=== PATIENT | female | born 1935 | race Caucasian/White ===

== ENCOUNTER 2017-02-23 22:33 | Emergency (ER) | payer OTHER ==
[~2017-02-23] VITALS: Ht 162.6 cm; Wt 59.0 kg
[~2017-02-23 22:33] MED LIST: CARV25TA55 PO; CYAN100067 PO; DIGO125T79 PO; FERR-57 PO; FOLI-43 PO; FURO-149 PO; HYDR-1189 PO; METO-290 PO; OMEP20CA10 PO; POTA20TA83 PO; RANO10003 PO; SIMV40TA5 PO; SYN75 PO; VITD2000 PO; WARF5TAB2 PO
[2017-02-23 22:46] VITALS: BP_SYST 137
[2017-02-24 02:42] VITALS: BP_SYST 129
== END 2017-02-24 02:42 | disposition home or self-care (01) ==
LOC: SED 22:33
DX: M54.5 Low back pain (principal); K21.9 Gastro-esophageal reflux disease without esophagitis; E07.9 Disorder of thyroid, unspecified; I48.91 Unspecified atrial fibrillation; Z88.1 Allergy status to other antibiotic agents; Z79.899 Other long term (current) drug therapy
CPT/HCPCS: 72131; 99284

== ENCOUNTER 2020-05-13 15:25 | Outpatient (CLI) | payer OTHER ==
[~2020-05-13 15:25] MED LIST changes: +CYAN100010 PO; -CYAN100067 PO; +DIGO125T PO; -DIGO125T79 PO; -OMEP20CA10 PO; +OMEP20CA15 PO; +SIMV-46 PO; -SIMV40TA5 PO
[2020-05-13 16:38] LABS: BASOPHILS % (AUTO) 0.5 % (0.0-2.0); EOSINOPHILS # (AUTO) 0.1 K/uL (0.0-0.4); EOSINOPHILS % (AUTO) 1.9 % (0.0-4.0); HEMATOCRIT 30.6 % (36-48); HEMOGLOBIN 10.5 g/dL (12.0-16.0); LYMPHOCYTES # (AUTO) 0.8 K/uL (1.0-5.5); LYMPHOCYTES % (AUTO) 18.8 % (20.5-51.5); MEAN CORPUSCULAR HEMOGLOBIN 38 pg (27-31); MEAN CORPUSCULAR HGB CONC 34 % (32-36); MEAN CORPUSCULAR VOLUME 112 fL (79.0-98.0); MONOCYTES # (AUTO) 0.4 K/uL (0.0-1.0); MONOCYTES % (AUTO) 8.2 % (1.7-9.3); NEUTROPHILS # (AUTO) 3.2 K/uL (1.8-7.7); NEUTROPHILS % (AUTO) 70.6 % (40.0-70.0); PLATELET COUNT (AUTO) 171 K/uL (130-430); RED BLOOD CELL COUNT(AUTO) 2.74 MIL/uL (4.2-6.2); WHITE BLOOD COUNT (AUTO) 4.5 K/uL (4.8-10.8)
[2020-05-13 16:43] LABS: BILIRUBIN,URINE NEGATIVE (NEGATIVE); BLOOD, URINE NEGATIVE (NEGATIVE); CLARITY/URINE CLEAR (CLEAR); COLOR,URINE ORANGE (YELLOW); GLUCOSE,URINE NEGATIVE (NEGATIVE); KETONES,URINE NEGATIVE (NEGATIVE); LEUKOCYTE ESTERASE ,URINE TRACE (NEGATIVE); NITRITE, URINE NEGATIVE (NEGATIVE); PROTEIN URINE NEGATIVE (NEGATIVE); UROBILINOGEN,URINE 0.2 (0.2-1.0)
[2020-05-13 16:54] LABS: ALANINE AMINOTRANSFERASE 24 U/L (12-78); ALBUMIN 3.1 g/dL (3.4-4.8); ANION GAP 6 (5-15); ASPARTATE AMINOTRANSFERASE 21 U/L (10-37); CALCIUM 8.5 mg/dL (8.4-11.0); CHLORIDE 106 mmol/L (98-107); CREATININE 1.44 mg/dL (0.55-1.30); GLUCOSE 104 mg/dL (70-99); POTASSIUM 4.1 mmol/L (3.5-5.1); SODIUM SERUM 139 mmol/L (136-145); TOTAL BILIRUBIN 0.6 mg/dL (0.0-1.0); UREA NITROGEN, BLOOD 26 mg/dL (8-21)
[2020-05-13 16:57] LABS: BACTERIA,URINE RARE /HPF (None Seen); MUCUS,URINE None Seen /LPF (None Seen); RBC,URINE 0-3 /HPF (0-3); WBC,URINE 0-3 /HPF (0-3)
[2020-05-13 17:01] LABS: CHOLESTEROL 144 mg/dL (<200); HDL CHOLESTEROL 70 mg/dL (>55); LDL CHOLESTEROL 57 mg/dL (<100); TRIGLYCERIDES 82 mg/dL (30-150)
== END 2020-05-13 20:39 | disposition home or self-care (01) ==
LOC: SLB 15:25
PROVIDERS: ATTEND Family Medicine Geriatric Medicine
DX: I10 Essential (primary) hypertension (principal); Z79.899 Other long term (current) drug therapy
CPT/HCPCS: 36415; 80053; 80061; 81000-TC; 82550-TC; 85025; 87086

== ENCOUNTER 2021-10-31 12:25 | Emergency (ER) | payer OTHER ==
[~2021-10-31] VITALS: Ht 162.6 cm; Wt 55.3 kg
[~2021-10-31 12:25] MED LIST changes: -HYDR-1189 PO; +HYDR-3919 PO; +POTA-197 PO; -POTA20TA83 PO
[2021-10-31 13:06] VITALS: BP_SYST 112
--- NOTE | 2021-10-31 13:06 | NUR ---
PT TRAIGED AND PLACED IN ED WAITING ROOM FOR AVAILABLE BED IN MAIN ED. ER MD AWARE OF MSE NEEDS
--- NOTE | 2021-10-31 13:13 | NUR ---
PT BIB FAMILY FROM HOME STATES PT HAD SYNCOPAL EVENT IN BATHROOM WITH FAMILY PRESENT YESTERDAY AT HOME, WHILE GETTING OUT OF THE SHOWER SHE BEGAN TO FALL, WAS LOWERED TO TOILET, THEN HAD RIGHT SIDED FACIAL DROOPING AND DROOLING, LOST CONSCIOUSNESS, WITH CONVULSIONS WITNESSED BY FAMILY. PT CALLED 911, PT TAKED TO HOSPITAL, HAD A NEGATIVE HEAD CT AND WAS DC'D. TODAY PT WENT TO FOR FOLLOW UPAND REFERRED HERE FOR MRI PER FAMILY. PT IS CURRENTLY AMBULATORY WITH STEADY GAIT, NO FACIAL DROOP, OR RIGHT SIDED WEAKNESS, [id number], VSS
--- NOTE | 2021-10-31 13:44 | NUR ---
COVID swabbed, sent to the lab.
[2021-10-31 14:06] LABS: BASOPHILS % (AUTO) 0.5 % (0.0-2.0); EOSINOPHILS # (AUTO) 0.1 K/uL (0.0-0.4); EOSINOPHILS % (AUTO) 1.8 % (0.0-4.0); HEMATOCRIT 29.3 % (36-48); HEMOGLOBIN 9.8 g/dL (12.0-16.0); LYMPHOCYTES # (AUTO) 1.1 K/uL (1.0-5.5); LYMPHOCYTES % (AUTO) 24.3 % (20.5-51.5); MEAN CORPUSCULAR HEMOGLOBIN 35 pg (27-31); MEAN CORPUSCULAR HGB CONC 34 % (32-36); MEAN CORPUSCULAR VOLUME 105 fL (79.0-98.0); MONOCYTES # (AUTO) 0.6 K/uL (0.0-1.0); MONOCYTES % (AUTO) 11.8 % (1.7-9.3); NEUTROPHILS # (AUTO) 2.9 K/uL (1.8-7.7); NEUTROPHILS % (AUTO) 61.6 % (40.0-70.0); PLATELET COUNT (AUTO) 161 K/uL (130-430); RED BLOOD CELL COUNT(AUTO) 2.79 MIL/uL (4.2-6.2); RED CELL DISTRIBUTION WIDTH 14.9 % (9.0-15.0); WHITE BLOOD COUNT (AUTO) 4.7 K/uL (4.8-10.8)
[2021-10-31 14:13] LABS: ANION GAP 1 (5-15); CALCIUM 8.9 mg/dL (8.4-11.0); CHLORIDE 107 mmol/L (98-107); CREATININE 1.34 mg/dL (0.55-1.30); GLUCOSE 88 mg/dL (70-99); POTASSIUM 3.9 mmol/L (3.5-5.1); SODIUM SERUM 141 mmol/L (136-145); UREA NITROGEN, BLOOD 34 mg/dL (8-21)
[2021-10-31 14:22] LABS: ALANINE AMINOTRANSFERASE 18 U/L (12-78); ALBUMIN 2.8 g/dL (3.4-4.8); ASPARTATE AMINOTRANSFERASE 21 U/L (10-37); TOTAL BILIRUBIN 0.3 mg/dL (0.0-1.0)
--- NOTE | 2021-10-31 14:55 | NUR ---
ER DR. MCCAIN EXAMINING PT IN TRIAGE
--- NOTE | 2021-10-31 15:29 | NUR ---
Urine collected, sent to lab. Dark yellow & clear.
[2021-10-31 15:38] LABS: BILIRUBIN,URINE NEGATIVE (NEGATIVE); BLOOD, URINE 1+ (NEGATIVE); COLOR,URINE YELLOW (YELLOW); GLUCOSE,URINE NEGATIVE (NEGATIVE); KETONES,URINE NEGATIVE (NEGATIVE); LEUKOCYTE ESTERASE ,URINE TRACE (NEGATIVE); NITRITE, URINE NEGATIVE (NEGATIVE); PH,URINE 6.5 (5.0-8.0); PROTEIN URINE NEGATIVE (NEGATIVE); UROBILINOGEN,URINE 0.2 (0.2-1.0)
[2021-10-31 15:39] LABS: CLARITY/URINE SLIGHTLY HAZY (CLEAR)
[2021-10-31 15:44] LABS: BACTERIA,URINE FEW /HPF (None Seen)
[2021-10-31] MEDS ORDERED: CEPH250C PO (15:54)
[2021-10-31 16:07] VITALS: BP_SYST 112
--- NOTE | 2021-10-31 16:07 | NUR ---
Patient given written and verbal discharge instructions and verbalizes understanding. ER MD discussed with patient the results and treatment provided. Patient in stable condition. ID arm band removed. Rx of KEFLEX given. Patient educated on pain management and to follow up with PMD. Pain Scale 0/10. Opportunity for questions provided and answered. Medication side effect fact sheet provided. PT TO FOLLOW UP WITH NEUROLOGIST IN AM
== END 2021-10-31 16:07 | disposition home or self-care (01) ==
LOC: SED 12:25
DX: R56.9 Unspecified convulsions (principal); N39.0 Urinary tract infection, site not specified; R55 Syncope and collapse; R29.810 Facial weakness; N18.9 Chronic kidney disease, unspecified; K21.9 Gastro-esophageal reflux disease without esophagitis; Z88.1 Allergy status to other antibiotic agents; Z79.899 Other long term (current) drug therapy; Z20.822 Contact with and (suspected) exposure to COVID-19
CPT/HCPCS: 36415; 80053; 81000; 83605; 83880; 84484; 85025; 87086; 93005; 99284

== ENCOUNTER 2022-10-21 21:29 | Inpatient (IN) | payer OTHER ==
[~2022-10-21] VITALS: Ht 170.2 cm; Wt 58.1 kg
[~2022-10-21 21:29] MED LIST changes: +CEPH250C PO
[2022-10-21 21:36] VITALS: BP_SYST 103; PULSE 78; RESP 20; TEMP 98.6; O2SAT 95
[2022-10-21 22:39] LABS: BASOPHILS % (AUTO) 0.4 % (0.0-2.0); EOSINOPHILS # (AUTO) 0.1 K/uL (0.0-0.4); EOSINOPHILS % (AUTO) 1.3 % (0.0-4.0); HEMATOCRIT 30.9 % (36-48); HEMOGLOBIN 10.3 g/dL (12.0-16.0); LYMPHOCYTES % (AUTO) 17.6 % (20.5-51.5); MEAN CORPUSCULAR HEMOGLOBIN 35 pg (27-31); MEAN CORPUSCULAR HGB CONC 33 % (32-36); MEAN CORPUSCULAR VOLUME 106 fL (79.0-98.0); MONOCYTES # (AUTO) 0.6 K/uL (0.0-1.0); MONOCYTES % (AUTO) 11.3 % (1.7-9.3); NEUTROPHILS % (AUTO) 69.4 % (40.0-70.0); PLATELET COUNT (AUTO) 176 K/uL (130-430); RED BLOOD CELL COUNT(AUTO) 2.92 MIL/uL (4.2-6.2); RED CELL DISTRIBUTION WIDTH 13.8 % (9.0-15.0); WHITE BLOOD COUNT (AUTO) 5.7 K/uL (4.8-10.8)
[2022-10-21 22:51] LABS: ANION GAP 4 (5-15); CALCIUM 9.3 mg/dL (8.4-11.0); CARBON DIOXIDE 31 mmol/L (23-29); CHLORIDE 102 mmol/L (98-107); CREATININE 1.65 mg/dL (0.55-1.30); GLUCOSE 104 mg/dL (74-106); POTASSIUM 3.9 mmol/L (3.5-5.1); SODIUM SERUM 137 mmol/L (136-145); UREA NITROGEN, BLOOD 22 mg/dL (8-21)
[2022-10-21 23:00] LABS: ALANINE AMINOTRANSFERASE 25 U/L (12-78); ALBUMIN 2.6 g/dL (3.4-4.8); ASPARTATE AMINOTRANSFERASE 26 U/L (10-37); TOTAL BILIRUBIN 0.7 mg/dL (0.0-1.0); TOTAL PROTEIN, SERUM 7.2 g/dL (6.4-8.3)
[2022-10-22 00:21] LABS: BILIRUBIN,URINE NEGATIVE (NEGATIVE); BLOOD, URINE 1+ (NEGATIVE); CLARITY/URINE CLEAR (CLEAR); COLOR,URINE YELLOW (YELLOW); GLUCOSE,URINE NEGATIVE (NEGATIVE); KETONES,URINE TRACE (NEGATIVE); LEUKOCYTE ESTERASE ,URINE NEGATIVE (NEGATIVE); NITRITE, URINE NEGATIVE (NEGATIVE); PROTEIN URINE NEGATIVE (NEGATIVE); UROBILINOGEN,URINE 0.2 (0.2-1.0)
[2022-10-22 00:29] LABS: BACTERIA,URINE RARE /HPF (None Seen)
[2022-10-22 00:31] LABS: CALCIUM OXALATE CRYSTALS,UR 0-10 /HPF (None Seen)
[2022-10-22] MEDS ORDERED: NACL 0.9% 1,000 ML IV ONE ×2 (01:45→02:45)
[2022-10-22] MEDS ORDERED: MYCOLOG30 TP (02:30)
[2022-10-22] MEDS ORDERED: FERR236T3 PO (02:30)
[2022-10-22] MEDS ORDERED: FLUT1BLS14 INH (02:30)
[2022-10-22] MEDS ORDERED: LIP40 PO (02:30)
[2022-10-22] MEDS ORDERED: L.RH1CAP PO (02:30)
[2022-10-22] MEDS ORDERED: UBID50TA3 PO (02:30)
[2022-10-22] MEDS ORDERED: CYAN100010 PO (02:30)
[2022-10-22] MEDS ORDERED: FLO44 INH (02:30)
[2022-10-22] MEDS ORDERED: AZEL6DRO5 EACH EYE (02:30)
[2022-10-22] MEDS ORDERED: CITA10TA17 PO (02:30)
[2022-10-22] MEDS ORDERED: METO25TA3 PO (02:30)
[2022-10-22] MEDS ORDERED: CHOL200019 PO (02:30)
[2022-10-22] MEDS ORDERED: MECL-225 PO (02:30)
[2022-10-22] MEDS ORDERED: NITSL SL (02:30)
[2022-10-22] MEDS ORDERED: POTA-195 PO (02:30)
[2022-10-22] MEDS ORDERED: WARF1TAB84 PO (02:30)
[2022-10-22] MEDS ORDERED: DIPHENHYDRAMINE INJ 50 MG/ML VIAL IVP ONE (02:45)
[2022-10-22] MEDS: cefTRIAXone 1 GM IVPB PREMIX 50 ML IV SCH (03:00)
[2022-10-22] MEDS ORDERED: LORazepam 2 MG/ML VIAL IVP ONE (03:15)
[2022-10-22 13:16] VITALS: BP_SYST 152; PULSE 75; RESP 18; TEMP 99.2; O2SAT 95
[2022-10-22 13:19] VITALS: BP_SYST 152; PULSE 70; RESP 16; TEMP 99.2
[2022-10-22] MEDS ORDERED: amLODIPine BESYLATE 5 MG TABLET PO ONE (14:45)
[2022-10-22] MEDS ORDERED: FUROSEMIDE 40 MG TABLET PO ONE (14:45)
[2022-10-22] MEDS ORDERED: hydrALAZINE HCL 20 MG/ML VIAL IVP PRN (15:00)
[2022-10-22] MEDS ORDERED: FUROSEMIDE 20 MG/2 ML VIAL IVP ONE (15:00)
[2022-10-22] MEDS: NACL 0.9% 1,000 ML IV SCH (15:31)
[2022-10-22 17:17] VITALS: BP_SYST 126; PULSE 69; RESP 16; TEMP 98.2; O2SAT 95
[2022-10-22] MEDS ORDERED: WARFARIN SODIUM 5 MG TABLET PO SCH (19:30)
[2022-10-22 20:10] VITALS: BP_SYST 137; PULSE 76; RESP 18; TEMP 98.9; O2SAT 95
[2022-10-22 20:18] VITALS: O2SAT 93
[2022-10-22] MEDS: RANOLAZINE 500 MG TAB.SR.12H PO SCH (21:00)
[2022-10-22] MEDS: FLUTICASONE 250 mCg/SALMETEROL 50 mCg DISKUS W.DEV INH SCH (21:00)
[2022-10-22] MEDS: ATORVASTATIN 20 MG TABLET PO SCH (21:42)
[2022-10-22] MEDS: METOPROLOL SUCCINATE 25 MG TAB.SR.24H (TOPROL XL) PO SCH (21:44)
[2022-10-22] MEDS: CARVEDILOL 25 MG TABLET (COREG) PO SCH (21:44)
[2022-10-22] MEDS: HEPARIN SODIUM,PORCINE 5,000 UNITS/ML VIAL SUBCUT SCH (21:46)
[2022-10-23] VITALS (9 sets, daily range): BP systolic 128–149; PULSE 66–92; RESP 16–18; TEMP 97.6–98.8; O2SAT 90–98
[2022-10-23] MEDS: NACL 0.9% 1,000 ML IV SCH ×4 (00:40→18:10)
[2022-10-23] MEDS ORDERED: cefTRIAXone 1 GM IVPB PREMIX 50 ML IV ONE (01:32)
[2022-10-23] MEDS: cefTRIAXone 1 GM IVPB PREMIX 50 ML IV SCH (02:13)
[2022-10-23 06:49] LABS: BASOPHILS % (AUTO) 0.2 % (0.0-2.0); EOSINOPHILS % (AUTO) 0.4 % (0.0-4.0); HEMATOCRIT 26.1 % (36-48); HEMOGLOBIN 8.8 g/dL (12.0-16.0); LYMPHOCYTES # (AUTO) 0.8 K/uL (1.0-5.5); LYMPHOCYTES % (AUTO) 15.2 % (20.5-51.5); MEAN CORPUSCULAR HEMOGLOBIN 35 pg (27-31); MEAN CORPUSCULAR HGB CONC 34 % (32-36); MEAN CORPUSCULAR VOLUME 105 fL (79.0-98.0); MONOCYTES # (AUTO) 0.4 K/uL (0.0-1.0); NEUTROPHILS # (AUTO) 3.8 K/uL (1.8-7.7); NEUTROPHILS % (AUTO) 75.2 % (40.0-70.0); PLATELET COUNT (AUTO) 143 K/uL (130-430); RED CELL DISTRIBUTION WIDTH 13.7 % (9.0-15.0)
[2022-10-23] MEDS: LEVOTHYROXINE SODIUM 0.075 MG TABLET PO SCH (06:51)
[2022-10-23 07:24] LABS: ALANINE AMINOTRANSFERASE 19 U/L (12-78); ANION GAP 7 (5-15); ASPARTATE AMINOTRANSFERASE 21 U/L (10-37); CALCIUM 7.6 mg/dL (8.4-11.0); CARBON DIOXIDE 26 mmol/L (23-29); CHLORIDE 106 mmol/L (98-107); CREATININE 1.19 mg/dL (0.55-1.30); GLUCOSE 100 mg/dL (74-106); PHOSPHORUS 3.6 mg/dL (2.7-4.5); POTASSIUM 3.2 mmol/L (3.5-5.1); SODIUM SERUM 139 mmol/L (136-145); TOTAL BILIRUBIN 0.6 mg/dL (0.0-1.0); TOTAL PROTEIN, SERUM 6.1 g/dL (6.4-8.3); UREA NITROGEN, BLOOD 18 mg/dL (8-21)
[2022-10-23] MEDS: PANTOPRAZOLE SODIUM 40 MG TAB PO SCH (09:00)
[2022-10-23] MEDS: METOPROLOL SUCCINATE 25 MG TAB.SR.24H (TOPROL XL) PO SCH ×2 (09:00→21:25)
[2022-10-23] MEDS: DIGOXIN 0.125 MG TABLET PO SCH (09:00)
[2022-10-23] MEDS: amLODIPine BESYLATE 5 MG TABLET PO SCH (09:00)
[2022-10-23] MEDS ORDERED: OMEPRAZOLE Non-Formulary 20 MG CAPSULE.DR PO SCH (09:00)
[2022-10-23] MEDS: RANOLAZINE 500 MG TAB.SR.12H PO SCH ×2 (09:00→21:24)
[2022-10-23] MEDS: CARVEDILOL 25 MG TABLET (COREG) PO SCH ×2 (09:00→21:24)
[2022-10-23] MEDS: CHOLECALCIFEROL (VITAMIN D3) 2,000 UNIT TABLET PO SCH (09:00)
[2022-10-23] MEDS: FLUTICASONE 250 mCg/SALMETEROL 50 mCg DISKUS W.DEV INH SCH (09:00)
[2022-10-23] MEDS ORDERED: KCL 40 mEq in 100 mL (PREMIX) 100 ML IV ONE (09:30)
[2022-10-23] MEDS: FUROSEMIDE 40 MG TABLET PO SCH (10:06)
[2022-10-23] MEDS: POTASSIUM CHLORIDE 20 mEq in 100 mL (PREMIX) 100 ML x 2 doses IV SCH ×2 (10:15→18:11)
[2022-10-23] MEDS: HEPARIN SODIUM,PORCINE 5,000 UNITS/ML VIAL SUBCUT SCH (10:19)
[2022-10-23 11:25] LABS: PROTHROMBIN TIME 37.5 SECS (9.5-12.5)
[2022-10-23 11:26] LABS: INR 3.9 (0.8-1.2)
[2022-10-23] MEDS: ALBUTEROL SULFATE 0.083% 2.5 MG/3 ML VIAL.NEB INH SCH ×2 (15:08→19:37)
[2022-10-23] MEDS: BUDESONIDE 0.5 MG/2 ML AMPUL.NEB INH SCH (19:38)
[2022-10-23] MEDS: ATORVASTATIN 20 MG TABLET PO SCH (21:24)
[2022-10-24] VITALS (7 sets, daily range): BP systolic 103–136; PULSE 75–90; RESP 18; TEMP 97.8–98; O2SAT 94–96
[2022-10-24] MEDS: ALBUTEROL SULFATE 0.083% 2.5 MG/3 ML VIAL.NEB INH SCH ×4 (01:00→20:08)
[2022-10-24] MEDS: NACL 0.9% 1,000 ML IV SCH ×2 (04:13→09:13)
[2022-10-24 05:05] LABS: BASOPHILS % (AUTO) 0.5 % (0.0-2.0); EOSINOPHILS % (AUTO) 0.3 % (0.0-4.0); HEMATOCRIT 28.2 % (36-48); HEMOGLOBIN 9.4 g/dL (12.0-16.0); LYMPHOCYTES # (AUTO) 0.5 K/uL (1.0-5.5); LYMPHOCYTES % (AUTO) 11.7 % (20.5-51.5); MEAN CORPUSCULAR HEMOGLOBIN 35 pg (27-31); MEAN CORPUSCULAR HGB CONC 33 % (32-36); MEAN CORPUSCULAR VOLUME 105 fL (79.0-98.0); MONOCYTES # (AUTO) 0.2 K/uL (0.0-1.0); MONOCYTES % (AUTO) 6.2 % (1.7-9.3); NEUTROPHILS # (AUTO) 3.2 K/uL (1.8-7.7); NEUTROPHILS % (AUTO) 81.3 % (40.0-70.0); PLATELET COUNT (AUTO) 153 K/uL (130-430); RED BLOOD CELL COUNT(AUTO) 2.69 MIL/uL (4.2-6.2); RED CELL DISTRIBUTION WIDTH 14.2 % (9.0-15.0); WHITE BLOOD COUNT (AUTO) 3.9 K/uL (4.8-10.8)
[2022-10-24 05:37] LABS: ALANINE AMINOTRANSFERASE 26 U/L (12-78); ALBUMIN 2.1 g/dL (3.4-4.8); ANION GAP 10 (5-15); ASPARTATE AMINOTRANSFERASE 28 U/L (10-37); CALCIUM 7.5 mg/dL (8.4-11.0); CARBON DIOXIDE 22 mmol/L (23-29); CHLORIDE 106 mmol/L (98-107); CREATININE 1.16 mg/dL (0.55-1.30); GLUCOSE 108 mg/dL (74-106); PHOSPHORUS 2.4 mg/dL (2.7-4.5); POTASSIUM 4.1 mmol/L (3.5-5.1); SODIUM SERUM 138 mmol/L (136-145); TOTAL BILIRUBIN 0.9 mg/dL (0.0-1.0); TOTAL PROTEIN, SERUM 6.7 g/dL (6.4-8.3); UREA NITROGEN, BLOOD 23 mg/dL (8-21)
[2022-10-24 05:50] LABS: INR 4.2 (0.8-1.2); PROTHROMBIN TIME 40.6 SECS (9.5-12.5)
[2022-10-24] MEDS: LEVOTHYROXINE SODIUM 0.075 MG TABLET PO SCH (06:50)
[2022-10-24] MEDS: BUDESONIDE 0.5 MG/2 ML AMPUL.NEB INH SCH ×2 (07:38→20:08)
[2022-10-24] MEDS: METOPROLOL SUCCINATE 25 MG TAB.SR.24H (TOPROL XL) PO SCH ×2 (09:11→20:22)
[2022-10-24] MEDS: DIGOXIN 0.125 MG TABLET PO SCH (09:12)
[2022-10-24] MEDS: CARVEDILOL 25 MG TABLET (COREG) PO SCH ×2 (09:12→20:22)
[2022-10-24] MEDS: PANTOPRAZOLE SODIUM 40 MG TAB PO SCH (09:12)
[2022-10-24] MEDS: amLODIPine BESYLATE 5 MG TABLET PO SCH (09:12)
[2022-10-24] MEDS: CHOLECALCIFEROL (VITAMIN D3) 2,000 UNIT TABLET PO SCH (09:12)
[2022-10-24] MEDS: FUROSEMIDE 40 MG TABLET PO SCH (09:13)
[2022-10-24] MEDS: CEFTRIAXONE SOD 1 GM/ D5W 50 ML IV SCH ×2 (09:13)
[2022-10-24] MEDS: RANOLAZINE 500 MG TAB.SR.12H PO SCH ×2 (09:19→20:56)
[2022-10-24] MEDS ORDERED: WARFARIN SODIUM 2 MG TABLET PO SCH (18:00)
[2022-10-24] MEDS ORDERED: WARFARIN SODIUM 5 MG TABLET PO SCH (18:00)
[2022-10-24] MEDS: ATORVASTATIN 20 MG TABLET PO SCH (20:22)
[2022-10-25] VITALS (11 sets, daily range): BP systolic 72–155; PULSE 70–106; RESP 12–20; TEMP 97.2–98.4; O2SAT 78–98
[2022-10-25] MEDS: ALBUTEROL SULFATE 0.083% 2.5 MG/3 ML VIAL.NEB INH SCH ×4 (01:20→20:21)
[2022-10-25 06:21] LABS: BASOPHILS % (AUTO) 0.1 % (0.0-2.0); EOSINOPHILS # (AUTO) 0.1 K/uL (0.0-0.4); HEMATOCRIT 26.8 % (36-48); HEMOGLOBIN 8.9 g/dL (12.0-16.0); LYMPHOCYTES # (AUTO) 0.7 K/uL (1.0-5.5); LYMPHOCYTES % (AUTO) 10.1 % (20.5-51.5); MEAN CORPUSCULAR HEMOGLOBIN 35 pg (27-31); MEAN CORPUSCULAR HGB CONC 33 % (32-36); MEAN CORPUSCULAR VOLUME 106 fL (79.0-98.0); MONOCYTES # (AUTO) 0.5 K/uL (0.0-1.0); MONOCYTES % (AUTO) 6.6 % (1.7-9.3); NEUTROPHILS # (AUTO) 5.8 K/uL (1.8-7.7); NEUTROPHILS % (AUTO) 82.2 % (40.0-70.0); PLATELET COUNT (AUTO) 174 K/uL (130-430); RED BLOOD CELL COUNT(AUTO) 2.54 MIL/uL (4.2-6.2); RED CELL DISTRIBUTION WIDTH 14.5 % (9.0-15.0)
[2022-10-25] MEDS: LEVOTHYROXINE SODIUM 0.075 MG TABLET PO SCH (07:00)
[2022-10-25 07:23] LABS: ALANINE AMINOTRANSFERASE 34 U/L (12-78); ALBUMIN 2.1 g/dL (3.4-4.8); ANION GAP 13 (5-15); ASPARTATE AMINOTRANSFERASE 35 U/L (10-37); CALCIUM 7.7 mg/dL (8.4-11.0); CARBON DIOXIDE 20 mmol/L (23-29); CHLORIDE 110 mmol/L (98-107); CHOLESTEROL 103 mg/dL (<200); CREATININE 1.46 mg/dL (0.55-1.30); GLUCOSE 99 mg/dL (74-106); HDL CHOLESTEROL 68 mg/dL (>55); POTASSIUM 3.7 mmol/L (3.5-5.1); SODIUM SERUM 143 mmol/L (136-145); THYROID STIMULATING HORMONE 1.55 uIu/mL (0.34-4.82); TOTAL BILIRUBIN 0.6 mg/dL (0.0-1.0); TOTAL PROTEIN, SERUM 6.8 g/dL (6.4-8.3); TRIGLYCERIDES 49 mg/dL (30-150); UREA NITROGEN, BLOOD 29 mg/dL (8-21)
[2022-10-25] MEDS: BUDESONIDE 0.5 MG/2 ML AMPUL.NEB INH SCH ×2 (07:42→20:22)
[2022-10-25 07:57] LABS: INR 6.7 (0.8-1.2); PROTHROMBIN TIME 63.4 SECS (9.5-12.5)
[2022-10-25] MEDS: RANOLAZINE 500 MG TAB.SR.12H PO SCH ×2 (09:00→21:07)
[2022-10-25] MEDS: FUROSEMIDE 40 MG TABLET PO SCH (09:27)
[2022-10-25] MEDS: CHOLECALCIFEROL (VITAMIN D3) 2,000 UNIT TABLET PO SCH (09:27)
[2022-10-25] MEDS: DIGOXIN 0.125 MG TABLET PO SCH (09:27)
[2022-10-25] MEDS: PANTOPRAZOLE SODIUM 40 MG TAB PO SCH (09:27)
[2022-10-25] MEDS: METOPROLOL SUCCINATE 25 MG TAB.SR.24H (TOPROL XL) PO SCH ×2 (09:28→21:08)
[2022-10-25] MEDS: CEFTRIAXONE SOD 1 GM/ D5W 50 ML IV SCH ×2 (09:29)
[2022-10-25] MEDS: amLODIPine BESYLATE 5 MG TABLET PO SCH (09:30)
[2022-10-25] MEDS ORDERED: NS 500 ML IV ONE (09:45)
[2022-10-25] MEDS: ATORVASTATIN 20 MG TABLET PO SCH (21:08)
[2022-10-26] VITALS (11 sets, daily range): BP systolic 137–158; PULSE 61–117; RESP 16–20; TEMP 96.9–99.1; O2SAT 91–98
[2022-10-26] MEDS: ALBUTEROL SULFATE 0.083% 2.5 MG/3 ML VIAL.NEB INH SCH ×4 (02:07→20:35)
[2022-10-26 05:12] LABS: BASOPHILS % (AUTO) 0.3 % (0.0-2.0); EOSINOPHILS % (AUTO) 0.2 % (0.0-4.0); HEMATOCRIT 28.5 % (36-48); HEMOGLOBIN 9.6 g/dL (12.0-16.0); LYMPHOCYTES # (AUTO) 0.3 K/uL (1.0-5.5); LYMPHOCYTES % (AUTO) 4.3 % (20.5-51.5); MEAN CORPUSCULAR HEMOGLOBIN 35 pg (27-31); MEAN CORPUSCULAR HGB CONC 34 % (32-36); MEAN CORPUSCULAR VOLUME 104 fL (79.0-98.0); MONOCYTES # (AUTO) 0.4 K/uL (0.0-1.0); MONOCYTES % (AUTO) 4.8 % (1.7-9.3); NEUTROPHILS % (AUTO) 90.4 % (40.0-70.0); PLATELET COUNT (AUTO) 195 K/uL (130-430); RED BLOOD CELL COUNT(AUTO) 2.75 MIL/uL (4.2-6.2); RED CELL DISTRIBUTION WIDTH 14.1 % (9.0-15.0); WHITE BLOOD COUNT (AUTO) 7.8 K/uL (4.8-10.8)
[2022-10-26 05:39] LABS: ERYTHROCYTE SEDIMENTATION RATE 60 MM/HR (0-20)
[2022-10-26 05:55] LABS: PROTHROMBIN TIME 85.4 SECS (9.5-12.5)
[2022-10-26 05:56] LABS: INR > 9.0 (0.8-1.2)
[2022-10-26 05:59] LABS: ALANINE AMINOTRANSFERASE 25 U/L (12-78); ALBUMIN 2.4 g/dL (3.4-4.8); ANION GAP 12 (5-15); ASPARTATE AMINOTRANSFERASE 33 U/L (10-37); CALCIUM 7.9 mg/dL (8.4-11.0); CARBON DIOXIDE 23 mmol/L (23-29); CHLORIDE 108 mmol/L (98-107); CREATININE 1.24 mg/dL (0.55-1.30); GLUCOSE 142 mg/dL (74-106); POTASSIUM 3.4 mmol/L (3.5-5.1); SODIUM SERUM 143 mmol/L (136-145); TOTAL BILIRUBIN 0.8 mg/dL (0.0-1.0); TOTAL PROTEIN, SERUM 7.5 g/dL (6.4-8.3); UREA NITROGEN, BLOOD 22 mg/dL (8-21)
[2022-10-26] MEDS: LEVOTHYROXINE SODIUM 0.075 MG TABLET PO SCH (06:08)
[2022-10-26] MEDS: BUDESONIDE 0.5 MG/2 ML AMPUL.NEB INH SCH ×2 (07:35→20:35)
[2022-10-26] MEDS: CEFTRIAXONE SOD 1 GM/ D5W 50 ML IV SCH ×2 (08:28)
[2022-10-26] MEDS: METOPROLOL SUCCINATE 25 MG TAB.SR.24H (TOPROL XL) PO SCH ×2 (08:30→21:05)
[2022-10-26] MEDS: amLODIPine BESYLATE 5 MG TABLET PO SCH (08:30)
[2022-10-26] MEDS: CHOLECALCIFEROL (VITAMIN D3) 2,000 UNIT TABLET PO SCH (08:30)
[2022-10-26] MEDS ORDERED: PHYTONADIONE Non-Formulary 5 MG TABLET PO ONE (08:30)
[2022-10-26] MEDS: FUROSEMIDE 40 MG TABLET PO SCH (08:31)
[2022-10-26] MEDS: PANTOPRAZOLE SODIUM 40 MG TAB PO SCH (08:31)
[2022-10-26] MEDS: RANOLAZINE 500 MG TAB.SR.12H PO SCH ×2 (08:31→21:06)
[2022-10-26] MEDS: DIGOXIN 0.125 MG TABLET PO SCH (08:31)
[2022-10-26] MEDS ORDERED: PHYTONADIONE 10 MG/ML AMP PO ONE (09:15)
[2022-10-26] MEDS ORDERED: PHYTONADIONE 10 MG/ML AMP IM ONE (10:30)
[2022-10-26] MEDS: ATORVASTATIN 20 MG TABLET PO SCH (21:06)
[2022-10-27] VITALS (10 sets, daily range): BP systolic 131–159; PULSE 83–120; RESP 16–21; TEMP 97.6–98.5; O2SAT 2–98
[2022-10-27] MEDS: ALBUTEROL SULFATE 0.083% 2.5 MG/3 ML VIAL.NEB INH SCH ×3 (01:00→13:35)
[2022-10-27 06:09] LABS: HEMATOCRIT 28.2 % (36-48); HEMOGLOBIN 9.5 g/dL (12.0-16.0); LYMPHOCYTES # (AUTO) 0.3 K/uL (1.0-5.5); LYMPHOCYTES % (AUTO) 3.8 % (20.5-51.5); MEAN CORPUSCULAR HEMOGLOBIN 35 pg (27-31); MEAN CORPUSCULAR HGB CONC 34 % (32-36); MEAN CORPUSCULAR VOLUME 103 fL (79.0-98.0); MONOCYTES # (AUTO) 0.3 K/uL (0.0-1.0); MONOCYTES % (AUTO) 3.9 % (1.7-9.3); NEUTROPHILS # (AUTO) 6.2 K/uL (1.8-7.7); NEUTROPHILS % (AUTO) 92.3 % (40.0-70.0); PLATELET COUNT (AUTO) 189 K/uL (130-430); RED BLOOD CELL COUNT(AUTO) 2.76 MIL/uL (4.2-6.2); RED CELL DISTRIBUTION WIDTH 14.3 % (9.0-15.0); WHITE BLOOD COUNT (AUTO) 6.7 K/uL (4.8-10.8)
[2022-10-27] MEDS: LEVOTHYROXINE SODIUM 0.075 MG TABLET PO SCH (06:13)
[2022-10-27 06:15] LABS: ERYTHROCYTE SEDIMENTATION RATE 78 MM/HR (0-20)
[2022-10-27 06:25] LABS: ANION GAP 10 (5-15); CALCIUM 8.2 mg/dL (8.4-11.0); CARBON DIOXIDE 25 mmol/L (23-29); CHLORIDE 109 mmol/L (98-107); CREATININE 1.16 mg/dL (0.55-1.30); GLUCOSE 124 mg/dL (74-106); POTASSIUM 3.3 mmol/L (3.5-5.1); SODIUM SERUM 144 mmol/L (136-145); UREA NITROGEN, BLOOD 25 mg/dL (8-21)
[2022-10-27 06:54] LABS: INR 1.6 (0.8-1.2); PROTHROMBIN TIME 15.8 SECS (9.5-12.5)
[2022-10-27] MEDS: BUDESONIDE 0.5 MG/2 ML AMPUL.NEB INH SCH (07:40)
[2022-10-27] MEDS ORDERED: AMLO5TAB4 PO (10:26)
[2022-10-27] MEDS ORDERED: WARF-66 PO (10:26)
[2022-10-27] MEDS: PANTOPRAZOLE SODIUM 40 MG TAB PO SCH (10:29)
[2022-10-27] MEDS: METOPROLOL SUCCINATE 25 MG TAB.SR.24H (TOPROL XL) PO SCH (10:29)
[2022-10-27] MEDS: CEFTRIAXONE SOD 1 GM/ D5W 50 ML IV SCH ×2 (10:29)
[2022-10-27] MEDS: CHOLECALCIFEROL (VITAMIN D3) 2,000 UNIT TABLET PO SCH (10:29)
[2022-10-27] MEDS: FUROSEMIDE 40 MG TABLET PO SCH (10:30)
[2022-10-27] MEDS: amLODIPine BESYLATE 5 MG TABLET PO SCH (10:31)
[2022-10-27] MEDS: DIGOXIN 0.125 MG TABLET PO SCH (10:31)
[2022-10-27] MEDS: RANOLAZINE 500 MG TAB.SR.12H PO SCH (10:32)
== END 2022-10-27 23:30 | DRG 917 ==
LOC: SED 21:29 → SMU 10-22 02:31
PROVIDERS: ADMIT Student in an Organized Health Care Education/Training Program; ATTEND Student in an Organized Health Care Education/Training Program
DX: T45.511A Poisoning by anticoagulants, accidental (unintentional), initial encounter (principal); G92.8 Other toxic encephalopathy; J18.9 Pneumonia, unspecified organism; N17.9 Acute kidney failure, unspecified; D68.59 Other primary thrombophilia; N39.0 Urinary tract infection, site not specified; I48.20 Chronic atrial fibrillation, unspecified; I13.0 Hypertensive heart and chronic kidney disease with heart failure and stage 1 through stage 4 chronic kidney disease, or unspecified chronic kidney disease; E86.0 Dehydration; E88.09 Other disorders of plasma-protein metabolism, not elsewhere classified; E87.6 Hypokalemia; E83.51 Hypocalcemia; I50.9 Heart failure, unspecified; E03.9 Hypothyroidism, unspecified; K21.9 Gastro-esophageal reflux disease without esophagitis; E11.22 Type 2 diabetes mellitus with diabetic chronic kidney disease; N18.9 Chronic kidney disease, unspecified; D72.819 Decreased white blood cell count, unspecified; D64.9 Anemia, unspecified; E78.5 Hyperlipidemia, unspecified; E83.39 Other disorders of phosphorus metabolism; F03.90 Unspecified dementia, unspecified severity, without behavioral disturbance, psychotic disturbance, mood disturbance, and anxiety; E11.65 Type 2 diabetes mellitus with hyperglycemia; Y92.89 Other specified places as the place of occurrence of the external cause; Z88.1 Allergy status to other antibiotic agents; Z88.8 Allergy status to other drugs, medicaments and biological substances; Z91.09 Other allergy status, other than to drugs and biological substances; Z79.01 Long term (current) use of anticoagulants; Z79.899 Other long term (current) drug therapy
CPT/HCPCS: 36415; 70450-TC; 71045; 76376; 80048; 80053; 80061; 81000; 83735; 83880; 84100; 84443; 84484; 85025; 85610-TC; 85651-TC; 87086; 92610-GN; 93005; 93306; 94640; 94760; 97110-GP; 97530-GP; 99285; J0696; J1200; J1644; J1940; J2060; J3430; J3480; J7030; J7040; J7060; J7613; J7626